=== PATIENT | male | born 1935 | race Caucasian/White ===

== ENCOUNTER → 2016-06-03 | Outpatient (CLI) | payer MEDICARE, OTHER ==
[2016-06-03 11:32] LABS: ALBUMIN 4.2 g/dL (3.4-5.0); ANION GAP 18.2 MEQ/L (3-15); PHOSPHORUS 4.3 mg/dL (2.4-4.9)
== END ==
LOC: LAB 11:00
PROVIDERS: ATTEND Internal Medicine Nephrology
DX: N18.3 Chronic kidney disease, stage 3 (moderate) (principal); E11.29 Type 2 diabetes mellitus with other diabetic kidney complication
CPT/HCPCS: 36415; 80069; 82570; 83970; 84156

== ENCOUNTER → 2016-09-02 | Outpatient (CLI) | payer MEDICARE, OTHER ==
[~2016-09-02] MED LIST: ASPI-504 PO; ATOR80TA PO; BISA10SU58 RC; CEFD300C PO; CHOL10002 PO; CHOL200018 PO; CHOL200025 PO; CLPD75T PO; CYAN10006 PO; D3; FERR159T3 PO; FERR325T36 PO; FURO20TA4 PO; GBPN300C PO; GLIP5TAB13 PO; HYDR-3811 PO; INSU100I14 SQ; INSU100I16 SC; INSU100V32 SQ; INSU100V5 SC; INSU100V5 SQ; IRON PO; LACT10SO6 PO; LEVEMIR; METF1000 PO; METO-270 PO; METO25TA2 PO; MIRALAX 17 GM P17 GM PO; MIRT15TA PO; MIRT15TA98 PO; MULT-166 PO; MULT-517 PO; NOVOLOG; NTR.4SL SL; OMEG1CAP58 PO; OMEP20CA6 PO; PANT40TA3 PO; ROPI0.5T PO; ROPI1TAB2 PO; ROSU10TA PO; ROSU5TAB PO; SENN-1 PO; TAMS-8 PO; UBID30CA19 PO; VENL150C PO; VIGAMOX OD; VIT1TABL80 PO; VITA1CAP PO
--- NOTE | 2016-09-02 17:51 | Diagnostic Imaging Report ---
INDICATION: Bronchitis and productive cough x6 weeks. EXAMINATION: PA and lateral chest obtained at 03:34 p.m. and compared with 12/13/2015. FINDINGS: Patient has had previous sternotomy. Heart is normal in size. Mediastinal silhouette is unremarkable. 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 There are some mild chronic appearing increased basilar markings which are similar to the prior study. There is no consolidation or pleural fluid. IMPRESSION: COPD changes. No consolidation or pleural fluid. Chronic appearing increased basilar markings are similar to the prior study of 12/13/2015. There is no new abnormality. Dictated by: Dictated on workstation # [id number]
== END ==
LOC: RAD 15:41
PROVIDERS: ATTEND Family Medicine
DX: J20.2 Acute bronchitis due to streptococcus (principal); J44.9 Chronic obstructive pulmonary disease, unspecified
CPT/HCPCS: 71020

== ENCOUNTER → 2016-09-04 | Outpatient (CLI) | payer MEDICARE, OTHER ==
--- NOTE | 2016-09-04 13:55 | Diagnostic Imaging Report ---
PROCEDURE: US Aorta Doppler. TECHNIQUE: Multiple real time grayscale images were obtained over the abdominal aorta in various projections. INDICATION: Screening for abdominal aortic aneurysm. FINDINGS: Abdominal aorta shows diffuse atherosclerotic plaquing throughout. There is normal Doppler imaging throughout. There is no evidence of aneurysm. Maximal aortic diameter is approximately 2 cm. Iliac arteries are not dilated. IMPRESSION: Atherosclerotic change of the aorta with no evidence of aneurysm or significant stenosis. Dictated by: Dictated on workstation # [id number]
== END ==
LOC: RAD 09:25
PROVIDERS: ATTEND Family Medicine
DX: I71.4 Abdominal aortic aneurysm, without rupture (principal)
CPT/HCPCS: 93978